=== PATIENT | male | born 1950 | race Caucasian/White ===

== ENCOUNTER 2021-01-19 14:19 | Emergency (ER) | payer MEDICARE, BC, SELFPAY ==
--- NOTE | 2021-01-19 14:27 | ED.SKABFB ---
HPI - Skin/Abscess/Foreign Bdy General Chief complaint: Wound/Laceration Stated complaint: leg wound Source: patient and RN notes reviewed Limitations: no limitations History of Present Illness HPI narrative: The obese patient, on several meds yet not diabetic, presents with poorly healing injury. 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 He comes in complains of mild pain and redness that has since developed. His tetanus status uncertain; no fever, warmth discharge, abscess/induration ,streaking-but it seems to be enlarging Related Data Home Medications Medication Instructions Recorded Confirmed cholecalciferol (vitamin D3) 25 25 mcg PO DAILY 11/05/19 10/14/20 mcg (1,000 unit) capsule magnesium oxide 400 mg (241.3 mg 400 mg PO DAILY 11/05/19 10/14/20 magnesium) tablet Allergies Allergy/AdvReac Type Severity Reaction Status Date / Time No Known Allergies Allergy Verified 10/11/20 14:32 Review of Systems Review of Systems: General/Constitutional: No weight loss,fever Eyes: N0: Redness,discharge Ears/Nose/Throat: No: Epistaxis,ear discharge Respiratory: Denies: Hemoptysis Gastrointestinal: No Vomiting, Bleeding-rectal Skin: No Lumps, REPORTS eruption Neurologic: No Focal Weakness,Sz Hematologic: Denies: Petechiae/Purpura Psychiatric: No: Suicida ideationl All Other Systems: Reviewed and Negative [facility] Family History Family History Mother Patient's mother is Acute myocardial infarction Father Acute myocardial infarction Social History Social History Smoking status: Never smoker Second hand tobacco smoke exposure: No Alcohol intake: never Substance use: never Comments At time of signature, agree with nursing past medical, surgical, social and family history. There is no relevant family history pertinent to the presenting complaint Exam Narrative: General Appearance: Well nourished/obese Head: Normocephalic Eye: PERRLA, Conjunctiva clear Ear: External ear normal Nose: Normal nose, Nare clear Mouth/Throat: Normal appearing Neck Exam: Supple Respiratory: Airway patent, No respiratory distress Musculoskeletal: Moves all extremities, Non tender Skin: Warm, Dry ; 3 cm, linear, longitudinal poorly healing- but fairly approximated,martínez laceration with surrounding redness Neurological: A&O x3 Psychiatric: Normal mood, Normal affect Course Vital Signs Vital signs: Vital Signs Temperature 97.3 F L 01/19/21 14:32 Pulse Rate 64 01/19/21 14:32 Respiratory Rate 16 01/19/21 14:32 Blood Pressure 144/82 H 01/19/21 14:32 Pulse Oximetry 97 01/19/21 14:32 Temperature 97.3 F L 01/19/21 14:32 Pulse Rate 64 01/19/21 14:32 Respiratory Rate 16 01/19/21 14:32 Blood Pressure 144/82 H 01/19/21 14:32 Pulse Oximetry 97 01/19/21 14:32 Discharge Plan Discharge Clinical Impression: Hx of laceration of skin Cellulitis Qualifiers: Site of cellulitis: extremity Site of cellulitis of extremity: lower extremity Laterality: right Qualified Code(s): L03.115 - Cellulitis of right lower limb Patient Disposition: Home, Self-Care Condition: Stable Instructions: Antibiotic Form, Cellulitis (ED) Additional Instructions: Take clindamycin with food, antacid, and/or probiotic; stop if diarrhea occurs. Keep photo log of area Prescriptions: New clindamycin HCl 300 mg capsule 300 mg PO TID Qty: 21 RF: 0 mupirocin 2 % ointment 1 applic TOPICAL TID Qty: 30 RF: 0 No Action magnesium oxide [MagOx] 400 mg (241.3 mg magnesium) tablet 400 mg PO DAILY RF: 0 cholecalciferol (vitamin D3) 25 mcg (1,000 unit) capsule 25 mcg PO DAILY RF: 0 atorvastatin 10 mg tablet See Rx Instructions .ROUTE .COMPLEX Qty:
[2021-01-19] MEDS: TETANUS,DIPHTHERIA,AC PERTUSSIS ADULT (0.5 ML) BOOSTRIX IM (14:30)
[2021-01-19 14:32] VITALS: BP 144/82; PULSE 64; RESP 16; TEMP 36.3; O2SAT 97
== END 2021-01-19 14:39 | disposition home or self-care (01) ==
PROVIDERS: Emergency Provider Emergency Medicine; PCP Physician Assistant
DX: L03.115 Cellulitis of right lower limb (principal); Z23 Encounter for immunization; I10 Essential (primary) hypertension; K21.9 Gastro-esophageal reflux disease without esophagitis; M19.90 Unspecified osteoarthritis, unspecified site; F41.9 Anxiety disorder, unspecified; F40.240 Claustrophobia; Z95.810 Presence of automatic (implantable) cardiac defibrillator
CPT/HCPCS: 90471; 90715; 99213; G0463

== ENCOUNTER 2022-02-13 12:38 | Emergency (ER) | payer MEDICARE, BC, SELFPAY ==
--- NOTE | 2022-02-13 12:43 | ED.UPPEXIN ---
HPI - Extremity Injury (Upper) General Chief Complaint: Skin/Abscess/Foreign Body Stated Complaint: R HAND INJURY Time Seen by Provider: 02/13/22 12:44 Source: patient Mode of arrival: ambulatory Limitations: no limitations History of Present Illness HPI narrative: Mr. Rosen is a 71-year-old male patient presented to the clinic today with complaints of a right hand injury. He reports he was working in some brush yesterday and received a puncture wound to his right hand from a thorn. He denies any pain, redness, and swelling to the right hand. Does have some bruising around the puncture wound. Tetanus up-to-date Related Data Home Medications Medication Instructions Recorded Confirmed cholecalciferol (vitamin D3) 25 25 mcg PO DAILY 11/05/19 02/13/22 mcg (1,000 unit) capsule magnesium oxide 400 mg (241.3 mg 400 mg PO DAILY 11/05/19 02/13/22 magnesium) tablet (MagOx) Allergies Allergy/AdvReac Type Severity Reaction Status Date / Time No Known Allergies Allergy Verified 10/19/21 14:43 Review of Systems Review of Systems: Pertinent positives per HPI. Patient denies any fever, chills, rash, headache, visual changes, dizziness, cough, runny nose, sore throat, shortness of breath, chest pain, palpitations, nausea, vomiting, diarrhea, constipation, abdominal pain, or any urinary issues. [facility] Family History Family History Mother Patient's mother is Acute myocardial infarction Father Acute myocardial infarction Social History Social History Smoking status: Never smoker Second hand tobacco smoke exposure: No Alcohol intake: never Substance use: never Comments At the time of my signature, I reviewed and agree with the nursing past medical, surgical, social, and family history. There is no relevant family history pertinent to the patient complaint. Exam Narrative: General: Well-developed, well nourished, in no apparent distress Head: Normocephalic, atraumatic. Cardio: Regular rate and rhythm, s1 and s2 normal, no murmur appreciated. Resp: Clear to auscultation bilaterally, no rhonchi, rales, wheezing or rubs. Integumentary: [place], warm, and dry, puncture wound to the right hand in the webbing in between the thumb and 2nd digit. Bruising noted without redness or swelling. No discharge. Course Course Emergency Course: Portions of this record may have been created with voice recognition software. Level of Care: Express Care Visit Vital Signs Vital signs: Vital signs reviewed MDM - Extremity Injury (Upper) MDM Narrative Medical decision making narrative: At the time of visit patient was resting comfortably on the exam table. He has a small puncture wound to the webbing of his right hand in between his thumb and second digit. No signs of active infection. I will order him a prescription for some mupirocin cream to put on this. He reports his tetanus shot is up-to-date within the last 5 years. Supportive measures were discussed with the patient he voiced understanding of discharge instructions and agrees to treatment plan. Differential Diagnosis Differential diagnosis: Likely other (Puncture wound, infected wound) Discharge Plan Discharge Clinical Impression: Puncture wound of hand Qualifiers: Encounter type: initial encounter Foreign body presence: without foreign body Laterality: right Qualified Code(s): S61.431A - Puncture wound without foreign body of right hand, initial encounter Patient Disposition: Home, Self-Care Condition: Stable Instructions: Antibiotic Form, Puncture Wound (ED) Additional Instructions: Keep wound clean and dry Wash daily with soap and water Apply mupirocin cream twice daily as directed Watch for signs and symptoms of infection which include redness, swelling, tenderness, purulent discharge, or streaking
[2022-02-13 12:48] VITALS: BP 165/76; PULSE 64; RESP 16; TEMP 36.6; O2SAT 96
== END 2022-02-13 13:07 | disposition home or self-care (01) ==
PROVIDERS: Emergency Provider Nurse Practitioner Family; PCP Physician Assistant
DX: S61.431A Puncture wound without foreign body of right hand, initial encounter (principal); W60.XXXA Contact with nonvenomous plant thorns and spines and sharp leaves, initial encounter
CPT/HCPCS: 99213; G0463

== ENCOUNTER 2022-05-14 15:47 | Outpatient (CLI) | payer MEDICARE, BC, SELFPAY ==
[2022-05-14 17:00] LABS: SARS-CoV-2 RNA PCR Negative
== END 2022-05-14 15:48 | disposition home or self-care (01) ==
PROVIDERS: PCP Physician Assistant; Visit Provider Physician Assistant
DX: R68.89 Other general symptoms and signs (principal); Z20.822 Contact with and (suspected) exposure to COVID-19
CPT/HCPCS: U0003; U0005

== ENCOUNTER 2022-10-01 09:28 | Outpatient (CLI) | payer MEDICARE, BC, SELFPAY ==
--- NOTE | ~2022-10-01 | XR_ITS ---
Cervical Spine: AP, lateral, open-mouth views Clinical History: Pain Findings: There is reversal of the normal cervical lordosis. No fracture or subluxation. There is adv anced degenerative disc narrowing at C4-C5, C5-C6, and C6-C7. The intervertebral disc spaces are well maintained. Pre-vertebral soft tissues are unremarkable. Impression: No fracture or subluxation. Reversal of the normal cervical lordosis. Degenerative disc narrowing at the lower cervical spine, as detailed above. Reviewed, dictated and finalized at location M. Impression: No fracture or subluxation. Reversal of the normal cervical lordosis. Degenerative disc narrowing at the lower cervical spine, as detailed above.
--- NOTE | ~2022-10-01 | XR_ITS ---
Left Shoulder Technique: AP and scapular Y views were obtained. Clinical History: Pain Findings: No fracture or dislocation is seen. Osseous alignment is anatomic. Is mild AC joint degener ative change. Glenohumeral joint is intact. Soft tissues are unremarkable. Impression: Mild AC joint degenerative change. No fracture or dislocation seen. Reviewed, dictated and finalized at [facility]. Impression: Mild AC joint degenerative change. No fracture or dislocation seen.
== END 2022-10-01 09:29 | disposition home or self-care (01) ==
LOC: ANHIMG 09:35
PROVIDERS: PCP Physician Assistant; Visit Provider Physician Assistant
DX: M54.2 Cervicalgia (principal); M19.012 Primary osteoarthritis, left shoulder
CPT/HCPCS: 72050; 73030

== ENCOUNTER → 2022-10-10 16:27 | Outpatient (CLI) | payer MEDICARE, BC, SELFPAY ==
--- NOTE | ~2022-10-10 | XR_ITS ---
XR lumbar spine 2-3V DATE: 10/10/2022 16:49 INDICATION: Spondylosis without myelopathy or radiculopathy TECHNIQUE: AP, lateral, coned lateral lumbosacral views COMPARISON: None FINDINGS: The lumbar vertebrae are normally aligned. There is severe degenerative disc disease at L1- 2, L2-3 and L5-S1, and moderate degenerative disc disease at L3-4, L4-5. No fracture or bone destruction. Included lower thoracic and lumbar pedicles are intact. The sacroiliac joints are unremarkable. There is abdominal aortic calcification without apparent aneurysm. IMPRESSION: Multilevel degenerative disc disease, most severe at L1-2, L2-3 and L5-S1 Reviewed, dictated and finalized at location L.
== END ==
PROVIDERS: PCP Internal Medicine; Visit Provider Anesthesiology Pain Medicine
DX: M47.816 Spondylosis without myelopathy or radiculopathy, lumbar region (principal); M51.36 Other intervertebral disc degeneration, lumbar region; M51.37 Other intervertebral disc degeneration, lumbosacral region
CPT/HCPCS: 72100

== ENCOUNTER 2024-11-30 04:18 | Inpatient (IN) | payer MEDICARE, BC, SELFPAY ==
[2024-11-30] VITALS (11 sets, daily range): BP systolic 142–178; BP diastolic 54–80; PULSE 60–92; RESP 17–27; TEMP 36.2–36.9; O2SAT 90–100; BMI 41.5
--- NOTE | ~2024-11-30 | CT_ITS ---
CT of the Abdomen and Pelvis: Indication: Abdominal pain Technique: 2.5 mm axial scans were obtained through the abdomen and pelvis following intravenous adm inistration of 100 cc of Omnipaque 350. Dose reduction technique was used on this scan by utilizing a utomated exposure control and iterative reconstruction technique. The dose-length product (DLP) was 1 669.09 mGy-cm. Findings: Scans through the lung bases are unremarkable. The liver, spleen, pancreas, adrenals and kidneys are within normal limits. Cholelithiasis noted. The re are atherosclerotic calcifications of the aorta. No lymphadenopathy. There are minimally distended proximal small bowel loops with questionable relative transition point in the mid abdomen. Distal small bowel loops are relatively decompressed. Images through the pelvis were performed. Urinary bladder unremarkable. No pelvic mass seen. No ascit es. Impression: Possible very early/partial small bowel obstruction. Correlate clinically. Cholelithiasis. Reviewed, dictated and finalized at [facility]. Impression: Possible very early/partial small bowel obstruction. Correlate clinically. Cholelithiasis.
--- NOTE | ~2024-11-30 | XR_ITS ---
EXAMINATION: XR abdomen obstructive series DATE: 12/01/2024 08:51 INDICATION: Small bowel obstruction TECHNIQUE: Supine and upright views of the abdomen. FINDINGS: No prior studies for comparison. The visualized lung parenchyma is normal.. There is a nonobstructive bowel gas pattern. Gas and stool are seen throughout the colon to the level of the rectum. There is no free air. There is severe lum bar spondylosis. IMPRESSION: 1. No acute abdominal abnormality. Reviewed, dictated and finalized at location []
[2024-11-30] MEDS: ONDANSETRON INJ 4 MG/2 ML VIAL IV PUSH (04:34)
[2024-11-30 04:37] LABS: Glucose Point of Care 231 mg/dl (65-105)
[2024-11-30 04:43] LABS: Basophils Percent Auto 0.2 % (0.2-1.2); Eosinophils Absolute Auto 0.1 K/mm3 (0-0.3); Eosinophils Percent Auto 0.6 % (0-4.4); Hematocrit 43.1 % (42.0-52.0); Hemoglobin 14.8 g/dL (14.0-18.0); Immature Granulocyte Absolute 0.07 K/mm3 (0.00-0.031); Immature Granulocyte Percent A 0.4 % (0-0.5); Lymphocytes Absolute Auto 2.57 K/mm3 (0.9-3.2); Lymphocytes Percent Auto 16.5 % (18.3-44.2); Mean Corpuscular HGB Conc 34.3 g/dl (32-36); Mean Corpuscular Hemoglobin 31.9 pg (26-34); Mean Corpuscular Volume 92.9 fl (80-100); Mean Platelet Volume 10.2 fl (7.4-10.4); Monocytes Absolute Auto 0.7 K/mm3 (0.1-0.6); Monocytes Percent Auto 4.2 % (2.6-8.5); Neutrophils Absolute Auto 12.1 K/mm3 (1.3-6.7); Neutrophils Percent Auto 78.1 % (45.5-73.1); Platelet Count Result 343 k/mm3 (150-375); Red Blood Count 4.64 M/mm3 (4.6-6.20); Red Cell Distribution Width 12.8 % (11.5-14.5); White Blood Count 15.6 K/mm3 (4.5-10.0)
--- OUTSIDE RECORDS SUMMARY | 2024-11-30 04:43 | XMS_ITS | Clinical Summary ---
Author Organization [facility] [employer] Address [address] [place] [address] Care Team Providers Care Bundler Seasonal Greenery Name Role Phone Unavailable Primary Care Provider Unavailabl e Source Comments [facility] [employer],non-owned Affiliates and Associated Physician Practices is amultiple site organization consisting of ambulatory clinics and hospital sitesin [place], [place], [place] and [place]. This disclosure is being madepursuant to the Care Everywhere program and may not contain all information available regarding this patient. 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 Gender Identity Not on file Sexual Orientation Not on file Plan of Treatment Health Maintenance Due Date Last Done Comments COLOGUARD (AGES 45-75) - COL ON CA SCREENING 1949 COLON MONITORING 1949 COLONOSCOPY - COLON CA SCREENING 1949 CT COLONOGRAPHY - COLON CA SCREENING 1949 Colorectal Cancer Screening 1949 FIT - COLON CA SCREENING 1949 FLEX SIG - COLON CA SCREENING 1949 LIPID TESTING 1949 HEPATITIS C SCREENING 04/18/1967 DTAP/TDAP/TD VACCINES (1 - Tdap) 1968 PNEUMOCOCCAL VACCINE 50+ (1 of 1 - PCV) 1999 ZOSTER VACCINE (1 of 2) 1999 COVID-19 VACCINE ( - 2023-2 5 season) 2024 Respiratory Syncytial Virus (RSV) Vaccine Pt: or over 60 yrs (1 - 1-dose 75+ series) 2024 DEPRESSION SCREENING 06/23/2024 INFLUENZA VACCINE (Season Ended) 2025 HEPATITIS B VACCINE Aged Out No longe r eligible based on patient's age to complete this topic HIB VACCINE Aged Out No longer eligi ble based on patient's age to complete this topic HPV VACCINE Aged Out No longer eligi ble based on patient's age to complete this topic MENINGOCOCCAL (Group B) VACC INE SHARED DECISION-MAKING Aged Out No longer eligibl e based on patient's age to complete this topic MENINGOCOCCAL GROUPS A/C/Y/W VACCINE Aged Out No longer eligible b ased on patient's age to complete this topic Insurance [facility] Address: [address] [place] [address] MEDICARE
--- OUTSIDE RECORDS SUMMARY | 2024-11-30 04:43 | XMS_ITS | Clinical Summary ---
Author Organization [facility] [address] [place] [address] [place] [address] Care Team Providers Care Wood Window And Door Craftsman Name Role Phone Steven Haywood MD Primary Care Provider [phone] Allergies Active Allergy Reactions Criticality Noted Date Comments Esomeprazole Unknown 01/20/[address] (NexIUM) 20 mg capsule take 1 capsule by oral route every day 0 0 6 Active cyanocobalamin- cobamamide (B-12 PLUS) 5,000-100 mcg tablet, sublingual 0 0 6 Active Additional Information Patient not taking.Reported on 01/20/2018 traMADol (ULTRAM) 50 mg tablet take 1 tablet by oral route every 6 hours as needed 0 0 6 Active acetaminophen (TYLENOL) 325 mg tablet take 1 tablet by oral route every 4 hours as needed 0 0 6 Active ibuprofen (ibuprofen) 200 mg tab/cap take 1 tablet by oral route every 6 hours as needed with food 0 0 6 Active hydroCHLOROthia zide (HYDRODIURIL) 25 mg tablet take 1 tablet by oral route every day 0 0 6 Active zinc (KF-TAXF-WRIBXE N) 15 mg tablet 15 mg. 0 0 6 Active Additional Information Patient not taking.Reported on 01/20/2018 sertraline (ZOLOFT) 50 mg tablet take 1 tablet by oral route every day 0 0 6 Active calcium-magnesi um 300-300 mg tablet 0 0 6 Active Additional Information Patient not taking.Reported on 01/20/[address] (EC NAPROSYN) 500 mg EC tablet take 1 tablet by oral route 2 times every day with food 0 0 6 Active Additional Information Patient not taking.Reported on 01/20/2018 biotin 1 mg capsule 1 mg. 0 0 6 Active Additional Information Patient not taking.Reported on 01/20/2018 multivitamin,tx -minerals (VITAMINS AND MINERALS) tablet 0 0 6 Active Additional Information Patient not taking.Reported on 01/20/2018 omega 4-xir-aaf-fish oil (FISH OIL) 100-160-1,000 mg capsule 0 0 6 Active atorvastatin (LIPITOR) 10 mg tablet take 1 tablet (10MG) by oral route every day 0 2 Active verapamil ER (VERELAN) 240 mg 24 hr capsule take 1 capsule (240MG) by oral route every day 0 2 Active aspirin 81 mg tablet take 1 tablet (81MG) by oral route every day 0 2 Active Additional Information Patient not taking.Reported on 01/20/2018 ibuprofen (MOTRIN) 600 mg tablet take 1 tablet (600MG) by oral route 3 times every day with food 0 2 Active Additional Information Patient not taking.Reported on 01/20/2018 furosemide (LASIX) 20 mg tablet take 1 tablet by oral route every 2 days 0 2 Active Additional Information Patient not taking.Reported on 01/20/2018 diclofenac sodium (VOLTAREN) 1 % gel APPLY 2 GRAMS AA TID 3 8 Active hydroCHLOROthia zide (HYDRODIURIL) 50 mg tablet TK 1 T PO QD 1 8 Active Active Problems No known active problems Medical History Medical History Date Comments Gastroesophageal reflux disease GERD Hypertension Cancer (HCC) Depression Rheumatoid arthritis (HCC) High cholesterol Family History Medical History Relation Name Comments Cancer Other 1 Family history of Cancer, unknown; Arthritis Other 2 Family history of Arthritis; Hypertension Other 3 Family history of Hypertension; Alcohol abuse Other 4 Family history of Alcoholism; Relation Name Status Comments Other 1 Other 2 Other 3 Other 4 Social History Tobacco Use Types Packs/Day Years Used Date Smoking Tobacco: Never Smokeless Tobacco: Never Alcohol Use Standard Drinks/Week Comments Yes 0 (1 standard drink = 0.6 oz pur e alcohol) Recovering alcoholic Sex and Gender Information Value Date Recorded Sex Assigned at Not on file 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 Gender Identity Not on file Sexual Orientation Not on file Obstetrics History Last Filed Vital Signs Vital Sign Reading Time Taken Comments Blood Pressure 154/74 01/20/2018 2:51 PM CDT Pulse 66 01/20/2018 2:51 PM CDT Temperature - - Respiratory Rate - - Oxygen Saturation - - Inhaled Oxygen Concentration - - Weight 135.2 kg (298 lb) 01/20/2018 2:51 PM CDT Height 172.7 cm (5' 8) 01/20/2018 2:51 PM CDT Body Mass Index 45.31 01/20/2018 2:51 PM CDT Plan of Treatment Not on file Insurance MEDICARE [facility] Care Teams Wood Window And Door Craftsman Relationship Specialty Start Date End Date Steven Haywood MD [address] [place] [address] PCP - General 01/02/16
--- OUTSIDE RECORDS SUMMARY | 2024-11-30 04:43 | XMS_ITS | Referral Summary ---
Author Organization [facility] [address] [place] [address] [place] [address] Care Team Providers Care Taxicab Starter Name Role Phone Steven Haywood MD Primary Care Provider [phone]- [phone] Allergies Active Allergy Reactions Criticality Noted Date [...] every day 0 0 6 Active zinc (IY-LIJO-VGJPNR N) 15 mg tablet 15 mg. 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
--- OUTSIDE RECORDS SUMMARY | 2024-11-30 04:43 | XMS_ITS | Encounter Summary ---
Author Organization [facility] Address [address] [place], [place] [address] [address] Care Team Providers Care Bargain Table Clerk Name Role Phone Unavailable Primary Care Provider Unavailabl e Encounter Details Date Type Department Care Team (Late st Contact Info) Description 08/03/2018 Lab Requisition [facility] Care DermPath Lab [address] [place] [id number] Nancy Griffith MD [address] [facility] [address] [place] [address] Social History Tobacco Use Types Packs/Day Years Used Date Smoking Tobacco: Never Assessed Sex and Gender Information Value Date Recorded Sex Assigned at Not on file Legal 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 Gender Identity Not on file Sexual Orientation Not on file documented as of this encounter Plan of Treatment Not on file documented as of this encounter Procedures Procedure Name Priority Date/Time Associated Diagnosis Comments DERMATOPATH TECHNICAL REPORT Routine 07/30/2018 12:00 AM SPLASH 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 documented in this encounter Results * DERMATOPATH TECHNICAL REPORT (07/30/2018 12:00 AM SPLASH 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) Case Report Dermatopathology Report Case: [id number] Authorizing Provider: Nancy Griffith MD Collected: 07/30/2018 12:00 AM Pathologist: Annamaria Clark MD Received: 08/03/2018 06:59 AM Specimen: Skin, left antihelix - superior miguel 9 11:53 AM SPLASH 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 DERMATOPATHOLOGY LABORATORY Clinical History SK vs AK. Growing, irritated. 9 11:53 AM SPLASH 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 DERMATOPATHOLOGY LABORATORY Gross Description Specimen A: Received is one formalin filled container labeled with the patient's name and designated left antihelix - superior miguel. The specimen consists of a shave measuring 2x1b5ox. Jar 0. [facility] Dermatopathology Laboratory performed the technical component only. 11:53 AM [facility] DERMATOPATHOLOGY LABORATORY Embedded Images 11:53 AM [facility] DERMATOPATHOLOGY LABORATORY DISCLAIMER An external and internal positive and negative controls are appropriate for the histochemical, immunohistochemical and immunofluorescence stain(s) in this case (if any), except where stated explicitly. The performance characteristics of the stain(s) cited in this report were developed and its performance characteristic determined by the Dermatopathology Laboratory at [facility], directed by Dr. Nicolás Hameed. These tests need not be, and therefore are not, approved by the [place] Food and Drug Administration. The tests are used for clinical purposes. 11:53 AM [facility] DERMATOPATHOLOGY LABORATORY at [address]2 SPLASH 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 Pathology/Cytolog y TISSUE SPECIMEN FROM SKIN / Unknown 07/30/2018 08/03/2018 6:59 AM SPLASH 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 Nancy Griffith MD LAB - PATHOLOGY/CYTOLOGY OR DERABLES Final Result DERMATOPATHOLOGY LABORATORY [facility] - Department of Dermatology [facility] [place] [address], [facility] [phone] documented in this encounter Visit Diagnoses Not on filedocumented in this encounter
--- OUTSIDE RECORDS SUMMARY | 2024-11-30 04:43 | XMS_ITS | Continuity of Care Document ---
Author Organization [facility] Address [address] [place] [address] Phone Care Team Providers Care Smoke Jumper Supervisor Name Role Phone Kelby Enciso Unavailable Unavailable Procedures Procedure Date Post-op Follow-up Visit Post-op Follow-up Visit Remove Cataract, Insert Lens Office Consultation IOLMaster Cataract Kit SEC MV Tax - Medical Advance Directives Directive Yes / No Effective Date File Name No Information Encounters Encounter Description Practice Location Reason(s) For Visit Diagnoses Date Provider Providers Copied on Encounter [facility], [address] [place] [address] [address], [place], [place], [id number], tel:[phone] [facility] No Information 9 Krishnasamy Kelby. [address] [place] [address], [facility], . tel:[phone] Referring Provider: mOar Rodrigues OD F, [address], [facility] [place]. tel:[phone] [facility], [address] [place] [address] [address], [place], [place], [id number], tel:[phone] [facility] No Information May-200 9 Krishnasamy Kelby. [address], [facility], . tel:[phone] Referring Provider: Omar Rodrigues OD F, [address] [facility], [place], [place], [facility] [place]. tel:[phone] [facility] Eye [facility], [address] [place] [address], [place], [id number], tel:[phone] [facility] No Information Dec-0 3-200 9 Krishnasamy Kelby. [facility] [address], [facility], . tel:[phone] Referring Provider: Omar Rodrigues OD F, [address] [facility], [place], [place], [facility] [place]. tel:[phone] Office Consultation [facility] Eye [facility], [address] [place] [address], [place], [place], [id number], tel:[phone] [facility] No Information 4-200 9 Krishnasamy Kelby. [facility] [address], [facility], . tel:[phone] Referring Provider: Omar Rodrigues OD F, [address] [facility], [place], [place], [facility] [place]. tel:[phone] Family History Family Member Type Diagnosis Age At Onset No Information Payers Payer name Insurance type Covered democrat ID Authoriza tion(s) No Information Social History Type Description Quantity Date Captured Comments Sex Male Smoking Status No Information Chief Complaint And Reason For Visit No Information Reason For Referral Reason For Referral No Information History Of Present Illness Encounter Date Complaint History Of Prese nt Illness No Information Functional Status Date Functional Assessmen t No Information Instructions Date Instruction Additional Infor mation No Information Assessments Type Assessment Date No Information Patient Care Teams Name Effective Dates (start - stop) Status Members No Information
[2024-11-30 05:05] LABS: Lactic Acid Reflex 5.7 mmol/L (0.7-2.0)
--- NOTE | 2024-11-30 05:13 | ED.ABDPAIN ---
HPI - Abdominal Pain General Chief Complaint: Abdominal Pain Stated Complaint: LOWER ABD PAIN History of Present Illness HPI narrative: Patient is a 74-year-old male who presents emergency department this evening complaining of diffuse abdominal pain. Patient states that he had too many peanuts causing him to develop abdominal pain. Patient also is complaining of chronic back pain. Upon arrival to the ED, patient had a large volume emesis is containing a lot of peanuts. Shortly after vomiting, patient states that he feels significantly better. States that his abdominal pain has significantly improved, however, he feels generally weak. Admits to history of diabetes. Denies any additional symptoms including any chest pain or shortness of breath. Related Data Home Medications ?Medication ?Instructions ?Recorded ?Confirmed ?Last Taken ?Type CBD PO 05/06/22 07/13/24 Unknown History cloves PO .QD 05/30/23 07/13/24 Unknown History cinnamon bark-chromium picolinate cap PO 01/23/24 07/13/24 Unknown History 500 mg-100 mcg capsule Allergies Allergy/AdvReac Type Severity Reaction Status Date / Time No Known Allergies Allergy Verified 07/13/24 14:29 Review of Systems Review of Systems: All systems are reviewed and are negative unless stated otherwise in the HPI. [facility] Family History Family History Mother Patient's mother is Acute myocardial infarction Father Acute myocardial infarction Social History Social History Smoking status: Never smoker Second hand tobacco smoke exposure: No Alcohol intake: never Substance use: never Lack of Transportation: No Lack of Food: Never True Current Housing: I Have Housing Concerned About Future Housing: No Difficulty Paying Gas/Electric Bills: No Difficulty Paying for Meds: No Currently Unemployed: No Education: Associate Degree Difficulty w/ Childcare or Family Care: No Exam Narrative: General: Alert, awake, afebrile, in no acute distress. HEENT: PERRL, no rhinorrhea, no post nasal drip, oropharynx clear. Neck: Trachea midline, no JVD, no lymphadenopathy. Cardiovascular: Regular rate and rhythm, no murmurs, rubs or gallops, no peripheral edema. Respiratory: Clear to auscultation bilaterally, no tachypnea, no wheezing, no rhonchi, no rubs, no respiratory distress. Abdomen: Soft, nontender, distended although patient states that this is his baseline, no rebound, no guarding, no peritoneal signs. Musculoskeletal: No joint swelling or deformity, normal muscle tone. Skin: No rashes or petechia, no signs of infection. Psychiatric: Alert and oriented, normal behavior and judgment for situation. Neurological: Alert and oriented to person, place, and time. Follows all commands. No focal deficits, speech is clear and fluent. Course Vital Signs Vital signs: Vital Signs Pulse Rate 80 11/30/24 04:23 Respiratory Rate 27 H 11/30/24 04:23 Blood Pressure 178/80 H 11/30/24 04:23 Pulse Oximetry 99 11/30/24 04:23 Oxygen Delivery Room Air 11/30/24 04:23 Pulse Rate 78 11/30/24 06:15 Respiratory Rate 22 H 11/30/24 06:15 Blood Pressure 171/75 H 11/30/24 06:15 Pulse Oximetry 90 11/30/24 06:15 Oxygen Delivery Room Air 11/30/24 04:23 MDM - Abdominal Pain MDM Narrative Medical decision making narrative: The patient was evaluated by myself in the emergency department. History is obtained from patient who is an independent historian and physical exam was performed. External medical records were reviewed at this time. IV was established and pertinent tests were ordered. Patient was administered 1 L IV fluid bolus with normal saline and 4 mg of IV Zofran. EKG was obtained which revealed sinus rhythm at a rate of 84 beats per minute, no evidence of acute ischemia. EKG was independently interpreted by me and is currently pending official cardiology read. Laboratory results obtained revealing a leukocytosis of 15.6, lactic acid of 5.7. Imaging studies obtained included CT abdomen and pelvis with IV contrast which was independently interpreted by me revealing: Findings: Scans through the lung bases are unremarkable. The liver, spleen, pancreas, adrenals and kidneys are within normal limits. Cholelithiasis noted. There are atherosclerotic calcifications of the aorta. No lymphadenopathy. There are minimally distended proximal small bowel loops with questionable relative transition point in the mid abdomen. Distal small bowel loops are relatively decompressed. Images through the pelvis were performed. Urinary bladder unremarkable. No pelvic mass seen. No ascites. Impression: Possible very early/partial small bowel obstruction. Correlate clinically. Cholelithiasis. Differential diagnosis considerations include gastroenteritis, gastritis, cholecystitis/pancreatitis/diverticulitis/bowel obstruction. Comorbidities impacting this visit include none. I have evaluated and discussed social determinants of health with the patient that could potentially impact subsequent diagnosis and treatment plans. On repeat assessment of the patient, reevaluation revealed that the patient is doing well and is in no acute distress. Patient symptoms have improved since he arrived to our emergency department. Repeat vital signs were all reviewed and noted to be stable. Differential diagnosis and treatment plan were discussed with the patient at bedside. Patient agrees with discussion and after shared medical decision making agrees with admission. All questions were answered to the patient's satisfaction. At case was discussed with the on-call general surgeon Dr. Gonzalez at 0655 and giving the patient feels well, he states to hold off on the NG tube for now. Keep the patient on a clear liquid diet. Case was discussed with the on-call hospitalist Dr. Banda at 0700 who accepted admission. Lab Data 11/30/24 04:33 11/30/24 05:04 Labs: Lab Results 11/30/24 11/30/24 11/30/24 Range/Units 04:33 04:35 05:04 WBC 15.6 H (4.5-10.0) K/mm3 RBC 4.64 (4.6-6.20) M/mm3 Hgb 14.8 (14.0-18.0) g/dL Hct 43.1 (42.0-52.0) % MCV 92.9 (80-100) fl MCH 31.9 (26-34) pg MCHC 34.3 (32-36) g/dl RDW 12.8 (11.5-14.5) % Plt Count 343 (150-375) k/mm3 MPV 10.2 (7.4-10.4) fl Immature Gran % (Auto) 0.4 (0-0.5) % Neut % (Auto) 78.1 H (45.5-73.1) % Lymph % (Auto) 16.5 L (18.3-44.2) % Citrus % (Auto) 4.2 (2.6-8.5) % Eos % (Auto) 0.6 (0-4.4) % Baso % (Auto) 0.2 (0.2-1.2) % Lymph # (Auto) 2.57 (0.9-3.2) K/mm3 [place] # (Auto) 0.7 H (0.1-0.6) K/mm3 Eos # (Auto) 0.1 (0-0.3) K/mm3 Baso # (Auto) 0.0 (0.0-0.1) K/mm3 Abs Immat Gran (auto) 0.07 H (0.00-0.031) K/mm3 Absolute Neuts (auto) 12.1 H (1.3-6.7) K/mm3 Absolute Nucleated RBC 0.000 (0.0-0.012) K/mm3 Nucleated RBC % 0.0 (0.0-0.2) % Sodium 137 (137-145) mmol/L Potassium 3.3 L (3.4-5.0) mmol/L Chloride 101 (98-107) mmol/L Carbon Dioxide 21 L (22-30) mmol/L Anion Gap 15 H (4-12) mmol/L BUN 15 (9-20) mg/dL Creatinine 0.74 (0.7-1.3) mg/dL Estim Creat Clear Calc 99 ml/min Estimated GFR > 60 (59 - ) Glucose 192 H (65-110) mg/dL POC Capillary Glucose 231 H (65-105) mg/dl Lactic Acid 5.7 H* (0.7-2.0) mmol/L Calcium 9.6 (8.4-10.2) mg/dL Magnesium 1.9 (1.6-2.3) mg/dL Total Bilirubin 0.8 (0.2-1.3) mg/dL AST 34 (17-59) U/L ALT 23 (6-50) U/L Alkaline Phosphatase 82 (38-126) U/L Total Protein 7.2 (6.3-8.2) g/dL Albumin 4.3 (3.5-5.1) g/dL Lipase 45 (23-300) U/L Imaging Data Radiologist's impression: ITS Impressions Abdomen/Pelvis CT 11/30/24 06:42 Impression: Possible very early/partial small bowel obstruction. Correlate clinically. Cholelithiasis. Discharge Plan Discharge Clinical Impression: Nausea & vomiting, Abdominal pain, Partial small bowel obstruction Patient Disposition: Still a Patient Condition: Improved Instructions: Antibiotic Form Patient Language: Faroese Prescriptions: No Action CBD PO cinnamon bark-chromium picolin 500-100 mg-mcg capsule PO cloves PO .QD metformin 500 mg tablet extended release 24 hr 500 mg PO DAILY Qty: 90 1RF lisinopril 5 mg tablet 5 mg PO DAILY Qty: 90 1RF (DME) blood-glucose meter [OneTouch Verio Flex meter] Misc See Rx Instructions .Route Qty: 1 0RF Rx Instructions: As directed (DME) OneTouch Verio test strips Strip See Rx Instructions .Route Qty: 100 2RF Rx Instructions: check blood sugar once daily (DME) lancets [OneTouch Delica Plus Lancet] 30 gauge misc See Rx Instructions .Route Qty: 100 2RF Rx Instructions: check blood sugar once daily triamcinolone acetonide 0.1 % cream 1 applic topical BID PRN (Reason: itching) Qty: 80 0RF albuterol sulfate 90 mcg/actuation HFA aerosol inhaler 2 puff inhalation Q4-6H PRN (Reason: shortness of breath or wheezing) Qty: 8.5 2RF hydrochlorothiazide 50 mg tablet 50 mg PO DAILY Qty: 90 2RF sertraline 50 mg tablet 50 mg PO DAILY Qty: 90 2RF atorvastatin 10 mg tablet See Rx Instructions .ROUTE .COMPLEX Qty: 90 1RF Dose Instruction: TAKE 1 TABLET BY MOUTH DAILY Rx Instructions: TAKE 1 TABLET BY MOUTH DAILY benzonatate 200 mg capsule 200 mg PO TID PRN (Reason: cough) Qty: 30 0RF verapamil 240 mg capsule,ext rel. pellets 24 hr 240 mg PO DAILY Qty: 90 2RF baclofen 10 mg tablet 10 mg PO TID PRN (Reason: myalgia) Qty: 270 0RF Rx Instructions: must last 90 days gabapentin 300 mg capsule 300 mg PO QHS Qty: 30 2RF tramadol 50 mg tablet 50 mg PO Q12H PRN (Reason: pain) Qty: 60 0RF Follow-up/Referrals: Yuri Williamson DO [Primary Care Provider] -
--- NOTE | 2024-11-30 05:15 | ECG_ITS ---
Test Date: 2024-11-30 05:20:28 Measurements Intervals [place] Rate: 84 P: 65 [place]: 232 QRS: 38 QRSD: 118 T: 34 QT: 434 QTc: 516 Interpretive Statements SINUS RHYTHM WITH FIRST DEGREE AV BLOCK INCOMPLETE RIGHT BUNDLE BRANCH BLOCK LOW QRS VOLTAGE IN PRECORDIAL LEADS PATTERN CONSISTENT WITH PULMONARY DISEASE MINIMAL Q WAVES- INFERIOR LEADS BORDERLINE ST-T WAVE ABNORMALITY- ANTERIOR LEADS BASELINE ARTIFACT- III, V4-V6 BORDERLINE ECG No previous ECG available for comparison Electronically Signed On 11-30-2024 06:24:12 CDT by Scotty Hemphill D.O.
[2024-11-30] MEDS: SODIUM CHLORIDE 0.9% IV 1,000 ML 999 ML IV CONT ×2 (06:04→08:02)
[2024-11-30 06:23] LABS: Alanine Aminotransferase 23 U/L (6-50); Albumin Level 4.3 g/dL (3.5-5.1); Alkaline Phosphatase 82 U/L (38-126); Anion Gap 15 mmol/L (4-12); Aspartate Amino Transferase 34 U/L (17-59); Bilirubin,Total 0.8 mg/dL (0.2-1.3); Blood Urea Nitrogen 15 mg/dL (9-20); Calcium 9.6 mg/dL (8.4-10.2); Carbon Dioxide 21 mmol/L (22-30); Chloride 101 mmol/L (98-107); Estimated CRCL calculation 99 ml/min; Estimated Glomerular Filt Rate > 60; Glucose 192 mg/dL (65-110); Lipase 45 U/L (23-300); Magnesium 1.9 mg/dL (1.6-2.3); Potassium 3.3 mmol/L (3.4-5.0); Sodium 137 mmol/L (137-145); Total Protein 7.2 g/dL (6.3-8.2)
[2024-11-30 06:41] LABS: Reflex Lactic Acid Yes or No Add Lactic
[2024-11-30 07:25] LABS: Lactic Acid 4.2 mmol/L (0.7-2.0)
--- NOTE | 2024-11-30 08:35 | ADMGEN ---
This patient, Kamron Rosen Sr., was admitted to [facility] Surg Room 316-02. Patient/family oriented to hospital policies and general routines including ID bracelet, bed and alarms, visiting hours, pain management, procedures, bathroom and other care routines, personal items, smoking policy, room service/diet, and visiting hours. Information on how to activate the Rapid Response Team has been discussed. Patient/Family are encouraged to report perceived risks to care and to ask questions if they do not understand what they are told or what they should do.
[2024-11-30] MEDS: POTASSIUM CHLORIDE 20 MEQ PACKET (FOR LIQUID) 40 MEQ PO (08:54)
[2024-11-30] MEDS: SODIUM CHLORIDE 0.9% IV 1,000 ML 125 ML IV CONT ×2 (09:02→18:35)
[2024-11-30 09:30] LABS: Lactic Acid Reflex 3.4 mmol/L (0.7-2.0)
--- NOTE | 2024-11-30 09:43 | P.CONGS_ITS ---
Assessment and Plan Assessment and plan (1) Partial small bowel obstruction: Code(s): K56.600 - Partial intestinal obstruction, unspecified as to cause Status: Acute Assessment and Plan: * CT scan on admission shows possible early partial small bowel obstruction. No history of abdominal surgeries. Obstructive symptoms started after consuming a large quantity of peanuts, which likely created a food bolus. His symptoms have improved after multiple episodes of vomiting in the ER that reportedly contained a lot of peanuts. He is no longer having abdominal pain and his exam is benign. No indication for urgent surgical intervention at this time. He still has some nausea but no more vomiting. Will continue clear liquids for now, but may need to consider NPO and NG tube decompression if he begins vomiting or abdominal pain returns. Discussed the case with Dr. Gonzalez, who also recommends GI consultation for possible food bolus. Will continue to follow with serial abdominal exams and imaging. I will switch his PO potassium to IV due to his nausea, and will repeat an obstructive series tomorrow morning. (2) Lactic acid acidosis: Code(s): E87.20 - Acidosis, unspecified Status: Acute Assessment and Plan: * Lactic acid 5.7 on admission and trending down to 3.4 today. Patient clinically improving and no longer having any abdominal pain. His abdominal exam is benign. Continue to trend and monitor with serial exams. (3) Diabetes mellitus: Code(s): E11.9 - Type 2 diabetes mellitus without complications Status: Chronic (4) Morbid obesity with BMI of 40.0-44.9, adult: Code(s): E66.01 - Morbid (severe) obesity due to excess calories; Z68.41 - Body mass index [BMI] 40.0-44.9, adult Status: Acute (5) Chronic pain: Code(s): G89.29 - Other chronic pain Status: Acute (6) Cholelithiasis: Code(s): K80.20 - Calculus of gallbladder without cholecystitis without obstruction Status: Acute Assessment and Plan: * Incidental finding on CT. No signs of acute cholecystitis. Not his current issue, but could follow-up as an outpatient if wanting further evaluation of his gallbladder as he mentions some intermittent epigastric and right upper quadrant pain in the past. Plan I have discussed the patient's case and plan of care with Dr. Gonzalez. History of Present Illness Consult details Consult date: 11/30/24 Reason for consult: other (Small-bowel obstruction) Requesting physician: Kateryna Banda MD Narrative: This is a 74-year-old man with history of type 2 diabetes mellitus, hypertension, hyperlipidemia, chronic back pain, and obesity, who we have been asked to see in surgical consultation for a small-bowel obstruction. He denies any previous abdominal surgeries or history of a bowel obstruction. He reports yesterday around 3:00 p.m. eating a large quantity of peanuts, estimating about half of a large container. Shortly after, he developed bloating and generalized abdominal pain. He felt nauseous but was unable to vomit. His pain persisted and ultimately brought him into the ED for evaluation. After arriving in the ED, he this that appeared to contain a large amount of peanuts. He was then evaluated [place] [address], potassium 3.3, glucose 231, lactic acid 5.7 with reflex down to 4.2. CT scan of the abdomen and pelvis showed possible early partial small-bowel obstruction and cholelithiasis without evidence of cholecystitis. He felt much better after vomiting and his abdominal pain resolved. He was admitted and our service was consulted. NG tube deferred at the time S his symptoms improved after vomiting. This morning, he continues to feel nauseous, but no vomiting since admission. No flatus or BM since admission. He reports using 2 enemas at home after starting with abdominal pain that did produce a bowel movement without any relief in his pain yesterday. Review of Systems 2 Review of Systems: All systems reviewed & are unremarkable except as noted in HPI and below PMFSH Past Medical History Medical History Constipation Diabetes mellitus Hyperlipidemia Surgical History Surgical History History of local excision of skin lesion History of colonoscopy Family History Family History Mother Patient's mother is Acute myocardial infarction Father Acute myocardial infarction Social History Social History Smoking status: Never smoker Second hand tobacco smoke exposure: No Alcohol intake: never Substance use: never Lack of Transportation: No Lack of Food: Never True Current Housing: I Have Housing Concerned About Future Housing: No Difficulty Paying Gas/Electric Bills: No Difficulty Paying for Meds: No Currently Unemployed: No Education: Associate Degree Difficulty w/ Childcare or Family Care: No Meds Home Medications and Allergies Home Medications ?Medication ?Instructions ?Recorded ?Confirmed ?Type blood sugar diagnostic (Actus DigitalTouch #100 ea 06/30/23 11/30/24 Rx Verio test strips) blood-glucose meter (Actus DigitalTouch #1 ea 06/30/23 11/30/24 Rx Verio Flex Meter) lancets 30 gauge (Actus DigitalTouch Delica #100 ea 06/30/23 11/30/24 Rx Plus Lancet) triamcinolone acetonide 0.1 % 1 applic topical BID PRN itching 10/27/23 11/30/24 Rx topical cream #80 grams albuterol sulfate 90 mcg/actuation 2 puff inhalation Q4-6H PRN 11/08/23 11/30/24 Rx aerosol inhaler shortness of breath or wheezing #8.5 grams hydrochlorothiazide 50 mg tablet 50 mg PO DAILY #90 tabs 05/31/24 11/30/24 Rx sertraline 50 mg tablet 50 mg PO DAILY #90 tabs 06/04/24 11/30/24 Rx atorvastatin 10 mg tablet See Rx Instructions .Route 06/14/24 11/30/24 Rx .COMPLEX #90 tabs verapamil 240 mg 24 hr 240 mg PO DAILY #90 caps 08/03/24 11/30/24 Rx capsule,extended release baclofen 10 mg tablet 10 mg PO TID PRN myalgia #270 tabs 08/30/24 11/30/24 Rx gabapentin 300 mg capsule 300 mg PO QHS #30 caps 10/14/24 11/30/24 Rx tramadol 50 mg tablet 50 mg PO Q12H PRN pain #60 tabs 11/22/24 11/30/24 Rx Allergies Allergy/AdvReac Type Severity Reaction Status Date / Time No Known Allergies Allergy Verified 07/13/24 14:29 Vital Signs Vital Signs - 24 hr 11/30/24 04:23 11/30/24 04:35 11/30/24 06:15 Temperature Pulse Rate 80 77 78 Respiratory Rate 27 H 25 H 22 H Blood Pressure 178/80 H 178/80 H 171/75 H Pulse Oximetry 99 100 90 Oxygen Delivery Room Air 11/30/24 07:26 11/30/24 07:32 11/30/24 08:38 Temperature 98.2 F Pulse Rate 77 76 92 Respiratory Rate 19 19 19 Blood Pressure 157/57 H 160/55 H 162/78 H Pulse Oximetry 95 95 100 Oxygen Delivery Exam 2 Const: General: comfortable and no acute distress Nutritional Appearance: o bese Orientation/consciousness: patient oriented x3 HENMT: Head: normocephalic and atraumatic Ears: hearing grossly normal bilaterally Mouth: Yes moist mucous membranes Eyes: General: appearance normal, both eyes and all related structures P upils: Equal, round and reactive pupils present Neck: Neck: normal visual inspection and full ROM Resp: Effort & Inspection: no respiratory distress Auscultation: clear to auscultation bilaterally Cardio: Rate: regular rate Rhythm: regular rhythm Peripheral pulses: P eripheral pulses 2+ throughout GI: Inspection: Pannus present, obesity (Large protuberant abdomen), no scars and no visible herniation GI Palp: Yes Soft to palpation, No Tenderness to palpation present (GI), No Guarding due to palpation present (GI) and No Rebound tenderness present Auscultation: Hypoactive bowel sounds present Skin: General skin exam: normal color Neuro: General: moves all extremities and no focal motor deficits Speech: n ormal speech Motor exam (neuro): 5/5 motor strength present throughout Extrem: General: normal to inspection and no edema Psych: Mental Status: mental status grossly normal Attitude: cooperative Insight: Good insight present (Psych) Judgement: Good judgement present (Psych) Results Labs 11/30/24 04:33 11/30/24 05:04 Labs: Abnormal lab results 11/30/24 11/30/24 11/30/24 Range/Units 04:33 04:35 05:04 WBC 15.6 H (4.5-10.0) K/mm3 Neut % (Auto) 78.1 H (45.5-73.1) % Lymph % (Auto) 16.5 L (18.3-44.2) % [place] # (Auto) 0.7 H (0.1-0.6) K/mm3 Abs Immat Gran (auto) 0.07 H (0.00-0.031) K/mm3 Absolute Neuts (auto) 12.1 H (1.3-6.7) K/mm3 Potassium 3.3 L (3.4-5.0) mmol/L Carbon Dioxide 21 L (22-30) mmol/L Anion Gap 15 H (4-12) mmol/L Glucose 192 H (65-110) mg/dL POC Capillary Glucose 231 H (65-105) mg/dl Lactic Acid 5.7 H* (0.7-2.0) mmol/L 11/30/24 11/30/24 Range/Units 07:01 09:11 WBC (4.5-10.0) K/mm3 Neut % (Auto) (45.5-73.1) % Lymph % (Auto) (18.3-44.2) % [place] # (Auto) (0.1-0.6) K/mm3 Abs Immat Gran (auto) (0.00-0.031) K/mm3 Absolute Neuts (auto) (1.3-6.7) K/mm3 Potassium (3.4-5.0) mmol/L Carbon Dioxide (22-30) mmol/L Anion Gap (4-12) mmol/L Glucose (65-110) mg/dL POC Capillary Glucose (65-105) mg/dl Lactic Acid 4.2 H* 3.4 H (0.7-2.0) mmol/L Diabetes panel 11/30/24 Range/Units 05:04 Sodium 137 (137-145) mmol/L Potassium 3.3 L (3.4-5.0) mmol/L Chloride 101 (98-107) mmol/L Carbon Dioxide 21 L (22-30) mmol/L BUN 15 (9-20) mg/dL Creatinine 0.74 (0.7-1.3) mg/dL Glucose 192 H (65-110) mg/dL Calcium 9.6 (8.4-10.2) mg/dL AST 34 (17-59) U/L ALT 23 (6-50) U/L Alkaline Phosphatase 82 (38-126) U/L Total Protein 7.2 (6.3-8.2) g/dL Albumin 4.3 (3.5-5.1) g/dL Calcium panel 11/30/24 Range/Units 05:04 Calcium 9.6 (8.4-10.2) mg/dL Albumin 4.3 (3.5-5.1) g/dL Pituitary panel 11/30/24 Range/Units 05:04 Sodium 137 (137-145) mmol/L Potassium 3.3 L (3.4-5.0) mmol/L Chloride 101 (98-107) mmol/L Carbon Dioxide 21 L (22-30) mmol/L BUN 15 (9-20) mg/dL Creatinine 0.74 (0.7-1.3) mg/dL Glucose 192 H (65-110) mg/dL Calcium 9.6 (8.4-10.2) mg/dL Adrenal panel 11/30/24 Range/Units 05:04 Sodium 137 (137-145) mmol/L Potassium 3.3 L (3.4-5.0) mmol/L Chloride 101 (98-107) mmol/L Carbon Dioxide 21 L (22-30) mmol/L BUN 15 (9-20) mg/dL Creatinine 0.74 (0.7-1.3) mg/dL Glucose 192 H (65-110) mg/dL Calcium 9.6 (8.4-10.2) mg/dL Total Bilirubin 0.8 (0.2-1.3) mg/dL AST 34 (17-59) U/L ALT 23 (6-50) U/L Alkaline Phosphatase 82 (38-126) U/L Total Protein 7.2 (6.3-8.2) g/dL Albumin 4.3 (3.5-5.1) g/dL All other labs normal. Imaging Additional studies: ITS Impressions Abdomen/Pelvis CT 11/30/24 06:42 Impression: Possible very early/partial small bowel obstruction. Correlate clinically. Cholelithiasis.
[2024-11-30] MEDS: POTASSIUM CHLORIDE INJ 40 MEQ in SODIUM CHLORIDE 0.9% IV 500 ML 130 MEQ IVPB (10:06)
[2024-11-30] MEDS: ENOXAPARIN 40 MG/0.4 ML SYRINGE SUB-Q (10:37)
[2024-11-30] MEDS: hydroCHLOROthiazide 25 MG TABLET 50 MG PO (10:37)
[2024-11-30] MEDS: ATORVASTATIN 10 MG TABLET BY MOUTH (10:37)
[2024-11-30] MEDS: SERTRALINE HCL 50 MG TABLET PO (10:37)
[2024-11-30] MEDS: VERAPAMIL HCL ER 240 MG TABLET.ER PO (10:38)
--- NOTE | 2024-11-30 16:19 | PM.IMHP ---
H&P: HPI History of Present Illness Date/Time: 11/30/24 16:19 Chief Complaint: LOWER ABD PAIN Narrative: ER-HPI narrative: Patient is a 74-year-old male who presents emergency department this evening complaining of diffuse abdominal pain. Patient states that he had too many peanuts causing him to develop abdominal pain. Patient also is complaining of chronic back pain. Upon arrival to the ED, patient had a large volume emesis is containing a lot of peanuts. Shortly after vomiting, patient states that he feels significantly better. States that his abdominal pain has significantly improved, however, he feels generally weak. Admits to history of diabetes. Denies any additional symptoms including any chest pain or shortness of breath. patient presented with abdominal pain, bloating and belching, presented to abdominal pain, apparently patient ate lot of peanuts which resulted in a food bolus, CT scan of abdomen showed possible very early/partial small bowel obstruction. most like 2/2 eating large amount of peanuts, patient felt better after he had large emesis containing peanuts, Upon arrival patient lactic acid was elevated to 4.2 2/2 dehydration and stress patient is being hydrated and lactic acid levels are trending down. patient will be seen by the surgery service and further recommendation to follow, Review of Systems Review of Systems: All systems reviewed & are unremarkable except as noted in HPI and below PMFSH Past Medical History Medical History Constipation Diabetes mellitus Hyperlipidemia Surgical History Surgical History History of local excision of skin lesion History of colonoscopy Family History Family History Mother Patient's mother is Acute myocardial infarction Father Acute myocardial infarction Social History Social History Smoking status: Never smoker Second hand tobacco smoke exposure: No Alcohol intake: never Substance use: never Substance use type: does not use Do You Feel Safe in your Home?: Yes Lack of Transportation: No Lack of Food: Never True Current Housing: I Have Housing Concerned About Future Housing: No Difficulty Paying Gas/Electric Bills: No Difficulty Paying for Meds: No Currently Unemployed: No Education: Associate Degree Difficulty w/ Childcare or Family Care: No Spiritual care concerns: No Meds Home Medications and Allergies Home Medications ?Medication ?Instructions ?Recorded ?Confirmed ?Type blood sugar diagnostic ([facility] #100 ea 06/30/23 11/30/24 Rx Verio test strips) blood-glucose meter ([employer] [facility] [employer] #1 ea 06/30/23 11/30/24 Rx Verio Flex Meter) lancets 30 gauge ([employer] [facility] [employer] Delica #100 ea 06/30/23 11/30/24 Rx Plus Lancet) triamcinolone acetonide 0.1 % 1 applic topical BID PRN itching 10/27/23 11/30/24 Rx topical cream #80 grams albuterol sulfate 90 mcg/actuation 2 puff inhalation Q4-6H PRN 11/08/23 11/30/24 Rx aerosol inhaler shortness of breath or wheezing #8.5 grams hydrochlorothiazide 50 mg tablet 50 mg PO DAILY #90 tabs 05/31/24 11/30/24 Rx sertraline 50 mg tablet 50 mg PO DAILY #90 tabs 06/04/24 11/30/24 Rx atorvastatin 10 mg tablet See Rx Instructions .Route 06/14/24 11/30/24 Rx .COMPLEX #90 tabs verapamil 240 mg 24 hr 240 mg PO DAILY #90 caps 08/03/24 11/30/24 Rx capsule,extended release baclofen 10 mg tablet 10 mg PO TID PRN myalgia #270 tabs 08/30/24 11/30/24 Rx gabapentin 300 mg capsule 300 mg PO QHS #30 caps 10/14/24 11/30/24 Rx tramadol 50 mg tablet 50 mg PO Q12H PRN pain #60 tabs 11/22/24 11/30/24 Rx Allergies Allergy/AdvReac Type Severity Reaction Status Date / Time No Known Allergies Allergy Verified 07/13/24 14:29 Vital Signs Vital Signs - 24 hr 11/30/24 04:23 11/30/24 04:35 11/30/24 06:15 Temperature Pulse Rate 80 77 78 Respiratory Rate 27 H 25 H 22 H Blood Pressure 178/80 H 178/80 H 171/75 H Pulse Oximetry 99 100 90 Oxygen Delivery Room Air 11/30/24 07:26 11/30/24 07:32 11/30/24 08:35 Temperature Pulse Rate 77 76 Respiratory Rate 19 19 18 Blood Pressure 157/57 H 160/55 H Pulse Oximetry 95 95 100 Oxygen Delivery Room Air 11/30/24 08:38 11/30/24 13:05 Temperature 36.8 C 36.2 C L Pulse Rate 92 86 Respiratory Rate 19 18 Blood Pressure 162/78 H 144/66 H Pulse Oximetry 100 97 Oxygen Delivery Exam Narrative: Morbidly obese Patient is comfortable, NAD HEENT: eyes are clear and none icteric LUNGS:CTA HEART: RR S1S2 ABD: BS+, Soft and diffusely tender Lower extremities: no edema SKIN: nonjaundiced Neuro: grossly intact. H&P: Results Labs Labs: Short CBC 11/30/24 Range/Units 04:33 WBC 15.6 H (4.5-10.0) K/mm3 Hgb 14.8 (14.0-18.0) g/dL Hct 43.1 (42.0-52.0) % Plt Count 343 (150-375) k/mm3 BMP 11/30/24 05:04 Sodium 137 Potassium 3.3 L Chloride 101 Carbon Dioxide 21 L BUN 15 Creatinine 0.74 Glucose 192 H Calcium 9.6 Liver Function 11/30/24 Range/Units 05:04 Total Bilirubin 0.8 (0.2-1.3) mg/dL AST 34 (17-59) U/L ALT 23 (6-50) U/L Alkaline Phosphatase 82 (38-126) U/L Albumin 4.3 (3.5-5.1) g/dL Assessment and Plan Assessment and plan (1) Nausea & vomiting: Code(s): R11.2 - Nausea with vomiting, unspecified Status: Acute (2) Partial small bowel obstruction: Code(s): K56.600 - Partial intestinal obstruction, unspecified as to cause Status: Acute (3) Abdominal pain: Code(s): R10.9 - Unspecified abdominal pain Status: Acute (4) Lactic acid acidosis: Code(s): E87.20 - Acidosis, unspecified Status: Acute (5) Chronic low back pain: Qualifiers: Back pain laterality: unspecified Sciatica presence: without sciatica Qualified Code(s): M54.50 - Low back pain, unspecified; G89.29 - Other chronic pain Code(s): M54.50 - Low back pain, unspecified; G89.29 - Other chronic pain Status: Acute (6) Diabetes mellitus: Code(s): E11.9 - Type 2 diabetes mellitus without complications Status: Chronic (7) Morbid obesity with BMI of 40.0-44.9, adult: Code(s): E66.01 - Morbid (severe) obesity due to excess calories; Z68.41 - Body mass index [BMI] 40.0-44.9, adult Status: Acute Plan patient presented with abdominal pain, bloating and belching, presented to abdominal pain, apparently patient ate lot of peanuts which resulted in a food bolus, CT scan of abdomen showed possible very early/partial small bowel obstruction. most like 2/2 eating large amount of peanuts, patient felt better after he had large emesis containing peanuts, Upon arrival patient lactic acid was elevated to 4.2 2/2 dehydration and stress patient is being hydrated and lactic acid levels are trending down. patient will be seen by the surgery service and further recommendation to follow, Quality VTE Prophylaxis VTE prophylaxis: mechanical ordered Hospitalist MIPS Advance Care Plan I have confirmed that the patient's Advanced Care Plan is present, code status is documented, or surrogate decision maker is listed in patient medical record.: Yes Medication Reconciliation The patient is not eligible for med reconciliation; the patient is in a emergent medical situation where delaying treatment would jeopardize the patients health.: Yes
[2024-11-30 17:01] LABS: Lactic Acid Reflex 2.4 mmol/L (0.7-2.0)
--- NOTE | 2024-11-30 17:24 | P.CONGI_ITS ---
Assessment and Plan Assessment and plan (1) Vomiting: Code(s): R11.10 - Vomiting, unspecified Status: Acute Assessment and Plan: the patient had an acute reaction to food overindulgence, characterized per vomiting, and abdominal pain that relieved significantly after emesis. Tomographic images might reflect a transient and self-limited ileus, however clinically the patient is doing well, tolerating oral feedings and not having any nausea vomiting. This is probably all circumstantial and secondary to the large amount of peanuts he ate. Will observe him overnight and if he tolerates a full liquid diet he can be discharged. GI Consult Note Consult date/time: 11/30/24 17:24 Reason for consult: Vomiting episode HPI: Kamron Rosen Sr. is a 74 year old male who was in his usual state of health, and was brought to emergency room after protracted vomiting of abundant peanuts. He states he ate over have a jar of peanut during the night before and continued to vomit food material for several times and significant amount of liquid. A CT scan of the abdomen showed dilatation of small-bowel loops and he was also found to have increased lactic acid, which was corrected after adequate intravenous hydration. At the present time, the patient is tolerating a clear liquid diet and is totally asymptomatic. Review of Systems 2 Review of Systems: All systems reviewed & are unremarkable except as noted in HPI and below PMFSH Past Medical History Medical History Constipation Diabetes mellitus Hyperlipidemia Surgical History Surgical History History of local excision of skin lesion History of colonoscopy Family History Family History Mother Patient's mother is Acute myocardial infarction Father Acute myocardial infarction Social History Social History Smoking status: Never smoker Second hand tobacco smoke exposure: No Alcohol intake: never Substance use: never Substance use type: does not use Do You Feel Safe in your Home?: Yes Lack of Transportation: No Lack of Food: Never True Current Housing: I Have Housing Concerned About Future Housing: No Difficulty Paying Gas/Electric Bills: No Difficulty Paying for Meds: No Currently Unemployed: No Education: Associate Degree Difficulty w/ Childcare or Family Care: No Spiritual care concerns: No Meds Home Medications and Allergies Home Medications ?Medication ?Instructions ?Recorded ?Confirmed ?Type blood sugar diagnostic ([facility] #100 ea 06/30/23 11/30/24 Rx Verio test strips) blood-glucose meter ([facility] #1 ea 06/30/23 11/30/24 Rx Verio Flex Meter) lancets 30 gauge ([facility] Del[facility] #100 ea 06/30/23 11/30/24 Rx Plus Lancet) triamcinolone acetonide 0.1 % 1 applic topical BID PRN itching 10/27/23 11/30/24 Rx topical cream #80 grams albuterol sulfate 90 mcg/actuation 2 puff inhalation Q4-6H PRN 11/08/23 11/30/24 Rx aerosol inhaler shortness of breath or wheezing #8.5 grams hydrochlorothiazide 50 mg tablet 50 mg PO DAILY #90 tabs 05/31/24 11/30/24 Rx sertraline 50 mg tablet 50 mg PO DAILY #90 tabs 06/04/24 11/30/24 Rx atorvastatin 10 mg tablet See Rx Instructions .Route 06/14/24 11/30/24 Rx .COMPLEX #90 tabs verapamil 240 mg 24 hr 240 mg PO DAILY #90 caps 08/03/24 11/30/24 Rx capsule,extended release baclofen 10 mg tablet 10 mg PO TID PRN myalgia #270 tabs 08/30/24 11/30/24 Rx gabapentin 300 mg capsule 300 mg PO QHS #30 caps 10/14/24 11/30/24 Rx tramadol 50 mg tablet 50 mg PO Q12H PRN pain #60 tabs 11/22/24 11/30/24 Rx Allergies Allergy/AdvReac Type Severity Reaction Status Date / Time No Known Allergies Allergy Verified 07/13/24 14:29 Vital Signs Vital Signs - 24 hr 11/30/24 04:23 11/30/24 04:35 11/30/24 06:15 Temperature Pulse Rate 80 77 78 Respiratory Rate 27 H 25 H 22 H Blood Pressure 178/80 H 178/80 H 171/75 H Pulse Oximetry 99 100 90 Oxygen Delivery Room Air 11/30/24 07:26 11/30/24 07:32 11/30/24 08:35 Temperature Pulse Rate 77 76 Respiratory Rate 19 19 18 Blood Pressure 157/57 H 160/55 H Pulse Oximetry 95 95 100 Oxygen Delivery Room Air 11/30/24 08:38 11/30/24 13:05 11/30/24 17:00 Temperature 98.2 F 97.2 F L 98.5 F Pulse Rate 92 86 85 Respiratory Rate 19 18 17 Blood Pressure 162/78 H 144/66 H 148/54 H Pulse Oximetry 100 97 97 Oxygen Delivery Exam 2 Narrative: Alert, oriented x3. Abdomen: Bowel sounds present, soft, nontender, obese, impossible to assess for organomegaly. Results Labs 11/30/24 04:33 11/30/24 05:04 Labs: Short CBC 11/30/24 Range/Units 04:33 WBC 15.6 H (4.5-10.0) K/mm3 Hgb 14.8 (14.0-18.0) g/dL Hct 43.1 (42.0-52.0) % Plt Count 343 (150-375) k/mm3 BMP 11/30/24 05:04 Sodium 137 Potassium 3.3 L Chloride 101 Carbon Dioxide 21 L BUN 15 Creatinine 0.74 Glucose 192 H Calcium 9.6 Liver Function 11/30/24 Range/Units 05:04 Total Bilirubin 0.8 (0.2-1.3) mg/dL AST 34 (17-59) U/L ALT 23 (6-50) U/L Alkaline Phosphatase 82 (38-126) U/L Albumin 4.3 (3.5-5.1) g/dL
[2024-11-30 18:45] LABS: Reflex Lactic Acid Yes or No Add Lactic
[2024-11-30 19:25] LABS: Lactic Acid 2.2 mmol/L (0.7-2.0)
[2024-11-30] MEDS: GABAPENTIN 300 MG CAPSULE PO (21:12)
[2024-11-30] MEDS: BACLOFEN 10 MG TABLET PO (21:12)
[2024-11-30] MEDS: traMADol HCL (*CRX) 50 MG TABLET PO (21:12)
[2024-12-01] VITALS: BP 132/47; PULSE 60; RESP 20; TEMP 36.6; O2SAT 97
[2024-12-01] MEDS: SODIUM CHLORIDE 0.9% IV 1,000 ML 125 ML IV CONT (02:17)
[2024-12-01 04:00] VITALS: BP 135/63; PULSE 65; RESP 20; TEMP 36.8; O2SAT 98
[2024-12-01 05:53] LABS: Anion Gap 5 mmol/L (4-12); Blood Urea Nitrogen 14 mg/dL (9-20); Calcium 8.4 mg/dL (8.4-10.2); Carbon Dioxide 27 mmol/L (22-30); Chloride 106 mmol/L (98-107); Estimated CRCL calculation 98 ml/min; Estimated Glomerular Filt Rate > 60; Glucose 112 mg/dL (65-110); Magnesium 2.1 mg/dL (1.6-2.3); Potassium 3.4 mmol/L (3.4-5.0); Sodium 138 mmol/L (137-145)
[2024-12-01 08:46] VITALS: O2SAT 95
[2024-12-01] MEDS: ATORVASTATIN 10 MG TABLET BY MOUTH (08:49)
[2024-12-01] MEDS: SERTRALINE HCL 50 MG TABLET PO (08:50)
[2024-12-01] MEDS: hydroCHLOROthiazide 25 MG TABLET 50 MG PO (08:50)
[2024-12-01] MEDS: VERAPAMIL HCL ER 240 MG TABLET.ER PO (08:50)
--- NOTE | 2024-12-01 09:29 | P.PNGS_ITS ---
Progress Note: A&P Assessment and Plan (1) Partial small bowel obstruction: Code(s): K56.600 - Partial intestinal obstruction, unspecified as to cause Status: Acute Assessment and Plan: * Related to a food bolus, which has resolved. He has had multiple BMs and is tolerating liquids. Plain films this am show no signs of an obstruction. * Will advance to a solid diet. If he is able to tolerate solid food, then he can d/c from a surgical standpoint. (2) Lactic acid acidosis: Code(s): E87.20 - Acidosis, unspecified Status: Acute Assessment and Plan: * Lactic acid continues to trend down to 2.2 today. CBC still pending, but if trending down okay to discharge once tolerating solid foods. (3) Cholelithiasis: Code(s): K80.20 - Calculus of gallbladder without cholecystitis without obstruction Status: Acute Assessment and Plan: * Incidental finding on CT. No signs of acute cholecystitis. He does report in termittent RUQ pain after eating fatty foods that is a chronic issue. No current abd pain. Recommended to f/u outpatient for further evaluation of his cholelithiasis/RUQ pain. Plan I have discussed the patient's case and plan of care with Dr. Gonzalez. Subjective Subjective Date/Time Seen: 12/01/24 09:29 Patient reports: no new complaints, feels better, tolerating liquids well, flatus and bowel movement Interval history: Patient feeling much better today. He has had no abdominal pain since I saw him yesterday. Nausea has resolved after having multiple bowel movements. He reports having a few formed bowel movements followed by more than 5 liquid bowel movements. No nausea or vomiting. He feels hungry. Exam Const: General: comfortable and no acute distress Orientation/consciousness: patient oriented x3 GI: Inspection: non-distended GI Palp: Yes Soft to palpation, No Tenderness to palpation present (GI), No Guarding due to palpation present (GI) and No Rebound tenderness present Auscultation: normal bowel sounds Objective Data Vital Signs Vital Signs: Vital Signs - 24 hr 11/30/24 13:05 11/30/24 17:00 11/30/24 20:00 Temperature 97.2 F L 98.5 F 98.3 F Pulse Rate 86 85 60 Respiratory Rate 18 17 20 Blood Pressure 144/66 H 148/54 H 142/56 H Pulse Oximetry 97 97 97 Oxygen Delivery Fraction of Inspired Oxygen 11/30/24 20:12 11/30/24 20:55 12/01/24 00:00 Temperature 97.8 F Pulse Rate 66 60 Respiratory Rate 20 Blood Pressure 132/47 L Pulse Oximetry 97 97 Oxygen Delivery Room Air Room Air Fraction of Inspired Oxygen 21 12/01/24 04:00 12/01/24 08:00 12/01/24 08:46 Temperature 98.3 F Pulse Rate 65 Respiratory Rate 20 Blood Pressure 135/63 Pulse Oximetry 98 95 Oxygen Delivery Room Air Room Air Fraction of Inspired Oxygen Intake/Output Intake/Output: Intake & Output 11/28/24 11/29/24 11/30/24 12/01/24 23:59 23:59 23:59 23:59 Intake Total 3957.1 1112.5 Balance 3957.1 1112.5 Meds/Results Medications: Active Medications Generic Name Dose Route Start Last Admin Trade Name Freq PRN Reason Stop Dose Admin Albuterol 2 puff 11/30/24 09:52 Albuterol Sulfate (*Sp) Aerosol 1 Puff INHALATION Q4-6H PRN shortness of breath or wheezing Atorvastatin Calcium 10 mg 11/30/24 09:55 12/01/24 08:49 Atorvastatin 10 Mg Tablet BY MOUTH 10 mg QAM ADINA Administration Baclofen 10 mg 11/30/24 09:52 11/30/24 21:12 Baclofen 10 Mg Tablet PO 10 mg TID PRN Administration myalgia Gabapentin 300 mg 11/30/24 21:00 11/30/24 21:12 Gabapentin 300 Mg Capsule PO 300 mg QHS ADINA Administration Hydrochlorothiazide 50 mg 11/30/24 10:10 12/01/24 08:50 Hydrochlorothiazide 25 Mg Tablet PO 50 mg DAILY ADINA Administration Sertraline HCl 50 mg 11/30/24 10:10 12/01/24 08:50 Sertraline Hcl 50 Mg Tablet PO 50 mg DAILY ADINA Administration Tramadol HCl 50 mg 11/30/24 09:52 11/30/24 21:12 Tramadol Hcl (*Crx) 50 Mg Tablet PO 50 mg Q12H PRN Administration pain Triamcinolone Acetonide 1 applic 11/30/24 09:52 Triamcinolone Acet 0.1% Cream 15 Gm Tube TOPICAL BID PRN itching Verapamil HCl 240 mg 06/10/25 10:15 12/01/24 08:50 Verapamil Hcl Er 240 Mg Tablet.Er PO 12/31/24 10:14 240 mg DAILY ADINA Administration Radiology Results: ITS Impressions Abdomen/Pelvis CT 11/30/24 06:42 Impression: Possible very early/partial small bowel obstruction. Correlate clinically. Cholelithiasis. Abdomen X-Ray 12/01/24 09:12 IMPRESSION: 1. No acute abdominal abnormality. Labs Labs: Laboratory Results - last 24 hr 11/30/24 11/30/24 11/30/24 09:11 16:37 19:00 Sodium Potassium Chloride Carbon Dioxide Anion Gap BUN Creatinine Estim Creat Clear Calc Estimated GFR Glucose Lactic Acid 3.4 H 2.4 H 2.2 H Calcium Magnesium 12/01/24 05:25 Sodium 138 Potassium 3.4 Chloride 106 Carbon Dioxide 27 Anion Gap 5 BUN 14 Creatinine 0.75 Estim Creat Clear Calc 98 Estimated GFR > 60 Glucose 112 H Lactic Acid Calcium 8.4 Magnesium 2.1
[2024-12-01] MEDS: POTASSIUM CHLORIDE 20 MEQ ER TABLET PO (09:39)
[2024-12-01 10:14] LABS: Hematocrit 38.9 % (42.0-52.0); Hemoglobin 12.3 g/dL (14.0-18.0); Mean Corpuscular HGB Conc 31.6 g/dl (32-36); Mean Corpuscular Hemoglobin 31.5 pg (26-34); Mean Corpuscular Volume 99.5 fl (80-100); Mean Platelet Volume 10.3 fl (7.4-10.4); Platelet Count Result 259 k/mm3 (150-375); Red Blood Count 3.91 M/mm3 (4.6-6.20); Red Cell Distribution Width 13.3 % (11.5-14.5); White Blood Count 11.7 K/mm3 (4.5-10.0)
--- NOTE | 2024-12-01 13:50 | P.DS_ITS ---
DS: Admitting Diagnosis Discharge Date 12/01/24 Admitting Diagnosis LOWER ABD PAIN DS: Discharge Diagnosis Discharge Diagnosis (1) Nausea & vomiting: Code(s): R11.2 - Nausea with vomiting, unspecified Status: Acute (2) Partial small bowel obstruction: Code(s): K56.600 - Partial intestinal obstruction, unspecified as to cause Status: Acute (3) Abdominal pain: Code(s): R10.9 - Unspecified abdominal pain Status: Acute (4) Lactic acid acidosis: Code(s): E87.20 - Acidosis, unspecified Status: Acute (5) Chronic low back pain: Qualifiers: Back pain laterality: unspecified Sciatica presence: without sciatica Qualified Code(s): M54.50 - Low back pain, unspecified; G89.29 - Other chronic pain Code(s): M54.50 - Low back pain, unspecified; G89.29 - Other chronic pain Status: Acute (6) Diabetes mellitus: Code(s): E11.9 - Type 2 diabetes mellitus without complications Status: Chronic (7) Morbid obesity with BMI of 40.0-44.9, adult: Code(s): E66.01 - Morbid (severe) obesity due to excess calories; Z68.41 - Body mass index [BMI] 40.0-44.9, adult Status: Acute Plan patient presented with abdominal pain, bloating and belching, presented to abdominal pain, apparently patient ate lot of peanuts which resulted in a food bolus, CT scan of abdomen showed possible very early/partial small bowel obstruction. most like 2/2 eating large amount of peanuts, patient felt better after he had large emesis containing peanuts, Upon arrival patient lactic acid was elevated to 4.2 2/2 dehydration and stress patient is being hydrated and lactic acid levels are trending down. patient will be seen by the surgery service and further recommendation to follow, DS: Summary Hospital Course Hospital Course: patient presented with abdominal pain, bloating and belching, presented to abdominal pain, apparently patient ate lot of peanuts which resulted in a food bolus, CT scan of abdomen showed possible very early/partial small bowel obstruction. most like 2/2 eating large amount of peanuts, patient felt better after he had large emesis containing peanuts, Upon arrival patient lactic acid was elevated to 4.2 2/2 dehydration and stress patient is being hydrated and lactic acid levels are trending down. patient will be seen by the surgery service and further recommendation to follow, patient had a large BM, able to tolerate his diet, seen by surgery service, patient can be discharge today. Time Spent with Patient Time attestation: Total time spent providing and/or coordinating discharge services: Exam Narrative: Morbidly obese Patient is comfortable, NAD HEENT: eyes are clear and none icteric LUNGS:CTA HEART: RR S1S2 ABD: BS+, Soft and diffusely tender Lower extremities: no edema SKIN: nonjaundiced Neuro: grossly intact. DS: Data Data Completed and Pending Labs on day of discharge: Labs from last 24 hours 12/01/24 11/30/24 11/30/24 05:25 19:00 16:37 WBC 11.7 H RBC 3.91 L Hgb 12.3 L Hct 38.9 L MCV 99.5 D MCH 31.5 MCHC 31.6 L RDW 13.3 Plt Count 259 MPV 10.3 Sodium 138 Potassium 3.4 Chloride 106 Carbon Dioxide 27 Anion Gap 5 BUN 14 Creatinine 0.75 Estim Creat Clear Calc 98 Estimated GFR > 60 Glucose 112 H Lactic Acid 2.2 H 2.4 H Calcium 8.4 Magnesium 2.1 Discharge Plan Discharge Attending physician on discharge: Kateryna Banda Consulting providers: Zenia Gonazlez; Fred Park III; Scotty Hemphill; Lita Anderson; Alber Reich; Deon Cuello; Kamron Holt Discharging Clinician: Kateryna Banda Patient Disposition: Home Activity: as tolerated Diet: low fat Discharge Instructions: * You were noted to have gallstones on your initial CT scan. This was not the reason for your admission, but you mentioned having intermittent RUQ pain. Surgery recommends eating a low fat diet to prevent issues with your gallstones and avoid abdominal pain. ---You can follow-up with your PCP or Dr. Gonzalez for further workup of your gallbladder. * Would recommend eating a soft, easily digestible diet for the next few days until you are back at your baseline and bowels are moving normally. * * patient to follow discharge care instruction from his surgeon and follow up as scheduled, patient is instructed to avoid heavy bulky meals, patient to follow up with his primary care provider as soon as possible. Patient Instructions: Antibiotic Form, Gallstones (DC), Low Fat Diet (DC) Patient Language: [place] Stand Alone Forms: General Discharge Information Follow-up/Referrals: Zenia Gonzalez MD [Physician] - 2 Weeks Yuri Williamson, [Primary Care Provider] - Discharge Medications: Continued (DME) blood-glucose meter [OneTouch Verio Flex meter] Misc See Rx Instructions .Route Qty: 1 0RF Rx Instructions: As directed (DME) OneTouch Verio test strips Strip See Rx Instructions .Route Qty: 100 2RF Rx Instructions: check blood sugar once daily (DME) lancets [OneTouch Delica Plus Lancet] 30 gauge misc See Rx Instructions .Route Qty: 100 2RF Rx Instructions: check blood sugar once daily triamcinolone acetonide 0.1 % cream 1 applic topical BID PRN (Reason: itching) Qty: 80 0RF albuterol sulfate 90 mcg/actuation HFA aerosol inhaler 2 puff inhalation Q4-6H PRN (Reason: shortness of breath or wheezing) Qty: 8.5 2RF hydrochlorothiazide 50 mg tablet 50 mg PO DAILY Qty: 90 2RF sertraline 50 mg tablet 50 mg PO DAILY Qty: 90 2RF verapamil 240 mg capsule,ext rel. pellets 24 hr 240 mg PO DAILY Qty: 90 2RF baclofen 10 mg tablet 10 mg PO TID PRN (Reason: myalgia) Qty: 270 0RF Rx Instructions: must last 90 days gabapentin 300 mg capsule 300 mg PO QHS Qty: 30 2RF tramadol 50 mg tablet 50 mg PO Q12H PRN (Reason: pain) Qty: 60 0RF No Action atorvastatin 10 mg tablet See Rx Instructions .ROUTE .COMPLEX Qty: 90 0RF Dose Instruction: TAKE 1 TABLET BY MOUTH DAILY Rx Instructions: TAKE 1 TABLET BY MOUTH DAILY Date of admission: 11/30/24 07:03 Primary Care Provider: Yuri Williamson Admitting Provider: Kateryna Banda Attending physician on admission: Kateryna Banda Condition: Improved
== END 2024-12-01 14:30 | disposition home or self-care (01) | DRG 389 ==
LOC: ANHED 06:20 → ANH3MEDSUR 07:50
PROVIDERS: Admitting Provider Family Medicine; Emergency Provider Emergency Medicine; PCP Internal Medicine; Visit Provider Family Medicine
DX: K56.690 Other partial intestinal obstruction (principal); E87.21 Acute metabolic acidosis; Z68.41 Body mass index [BMI] 40.0-44.9, adult; E86.0 Dehydration; M54.50 Low back pain, unspecified; G89.29 Other chronic pain; E11.9 Type 2 diabetes mellitus without complications; E66.01 Morbid (severe) obesity due to excess calories; K80.20 Calculus of gallbladder without cholecystitis without obstruction; I10 Essential (primary) hypertension; E78.5 Hyperlipidemia, unspecified
CPT/HCPCS: 36415; 74019; 74177; 80048; 80053; 82948; 83605; 83690; 83735; 85025; 85027; 93005; 96361; 96374; 99285; A9270; J1650; J2405; J3480; J7030; J7040; Q9967